=== PATIENT | male | born 1965 | race Caucasian/White ===

== ENCOUNTER 2025-04-18 08:08 | Observation (INO) | payer OTHER ==
[2025-04-18] MEDS ORDERED: ACETAMINOPHEN INJECTION 100 ML ONE (08:45)
[2025-04-18] MEDS: ACETAMINOPHEN 1000 MG/100 ML BAG IVPB ONE (08:51)
[2025-04-18] MEDS: SODIUM CHLORIDE 0.9% 500 ML INFUS.BAG IV ONE ×2 (08:51→10:19)
[2025-04-18] MEDS ORDERED: ONDANSETRON 4 MG/2 ML VIAL ONE (09:13)
[2025-04-18] MEDS: ONDANSETRON 4 MG/2 ML VIAL IVPB ONE (09:21)
[2025-04-18 10:01] LABS: ABSOLUTE IMMATURE GRANULOCYTES 0.02 x10^3/uL (0.0-0.031); BASOPHILS # 0.08 x10^3/uL (0.01-0.08); EOSINOPHIL % 2.5 % (0.8-7.0); EOSINOPHILS # 0.18 x10^3/uL (0.04-0.54); HEMATOCRIT 45.4 % (40.1-51.0); MEAN CELL VOLUME 85.8 fl (79.0-92.2); MEAN PLT VOLUME 9.5 fl (9.4-12.4); MONOCYTE # 0.39 x10^3/uL (0.30-0.82); MONOCYTE % 5.5 % (5.3-12.2); PLATELET COUNT 247 x10^3/uL (163-337); RDW 12.8 % (12.2-16.1)
[2025-04-18 10:24] LABS: BILIRUBIN,TOTAL 0.9 mg/dl (0.2-1); CALCIUM 9.1 mg/dl (8.5-10.1); CREATININE 1.3 mg/dl (0.6-1.3); POTASSIUM 3.5 mmol/L (3.5-5.1); TOT PROT 6.1 g/dl (6.4-8.2)
[2025-04-18] MEDS: DEXTROSE 5%-NORMAL SALINE 1,000 ML IV SCH (12:39)
[2025-04-18] MEDS: SODIUM CHLORIDE 1,000 ML IV SCH (13:20)
[2025-04-18 14:49] VITALS: BMI 31.4
[2025-04-18] MEDS: LORazepam 2 MG/ML SDV VIAL IVPUSH PRN (18:00)
[2025-04-18 18:12] LABS: URINE BARBITURATES NEGATIVE (NEGATIVE); URINE BENZODIAZEPINES NEGATIVE (NEGATIVE)
[2025-04-18 18:13] LABS: COCAINE, UR NEGATIVE (NEGATIVE); METHADONE, UR NEGATIVE (NEGATIVE); PHENCYCLIDINE,URINE NEGATIVE (NEGATIVE); URINE AMPHETAMINES NEGATIVE (NEGATIVE)
[2025-04-18 18:15] LABS: OPIATES, URI NEGATIVE (NEGATIVE)
[2025-04-18] MEDS: OXYMETAZOLINE 0.05% NASAL SOLUTION 15 ML BOTTLE NS PRN (23:08)
[2025-04-19 07:05] VITALS: RESP 18; TEMP 97.5
[2025-04-19 09:39] LABS: ABSOLUTE IMMATURE GRANULOCYTES 0.01 x10^3/uL (0.0-0.031); BASOPHILS # 0.06 x10^3/uL (0.01-0.08); EOSINOPHIL % 1.5 % (0.8-7.0); EOSINOPHILS # 0.12 x10^3/uL (0.04-0.54); HEMATOCRIT 42.6 % (40.1-51.0); HEMOGLOBIN 14.1 g/dL (13.7-17.5); MCHC 33.1 g/dl (32.3-36.5); MEAN CELL VOLUME 85.7 fl (79.0-92.2); MEAN PLT VOLUME 9.3 fl (9.4-12.4); MONOCYTE # 0.46 x10^3/uL (0.30-0.82); MONOCYTE % 5.8 % (5.3-12.2); PLATELET COUNT 240 x10^3/uL (163-337); RDW 12.6 % (12.2-16.1)
[2025-04-19 09:56] LABS: ALBUMIN 3.7 g/dl (3.4-5.0); BILIRUBIN,TOTAL 0.9 mg/dl (0.2-1); CALCIUM 8.8 mg/dl (8.5-10.1); CREATININE 1.1 mg/dl (0.6-1.3); PHOSPHOROUS 2.6 (2.5-4.9); POTASSIUM 3.8 mmol/L (3.5-5.1); TOT PROT 5.6 g/dl (6.4-8.2)
[2025-04-19 10:22] VITALS: BP 124/80; PULSE 75
== END 2025-04-19 16:06 | disposition home or self-care (01) ==
LOC: FER 08:08 → INTOOBSV 12:58 → FM/S 12:58
PROC: 3E033NZ Introduction of Analgesics, Hypnotics, Sedatives into Peripheral Vein, Percutaneous Approach (ICD-10-PCS; principal; 2025-04-18)
PROC: 3E0337Z Introduction of Electrolytic and Water Balance Substance into Peripheral Vein, Percutaneous Approach (ICD-10-PCS; 2025-04-18)
PROC: 3E033GC Introduction of Other Therapeutic Substance into Peripheral Vein, Percutaneous Approach (ICD-10-PCS; 2025-04-18)
DX: R55 Syncope and collapse (principal); R42 Dizziness and giddiness; F10.99 Alcohol use, unspecified with unspecified alcohol-induced disorder; E78.00 Pure hypercholesterolemia, unspecified; I10 Essential (primary) hypertension; E66.01 Morbid (severe) obesity due to excess calories; Z98.84 Bariatric surgery status; G47.30 Sleep apnea, unspecified; Z99.81 Dependence on supplemental oxygen; Z90.49 Acquired absence of other specified parts of digestive tract
CPT/HCPCS: 0241U-QW; 36415; 70450-TC; 70551-TC; 71045-TC-FY; 74177-TC; 80053; 80307; 83735; 84100; 84443; 84484; 85025; 93306-TC; 93880-TC; 99285-25; G0378; Q9967